=== PATIENT | male | born 1950 | race Caucasian/White ===

== ENCOUNTER 2019-04-28 09:50 | Observation (INO) | payer MEDICARE, OTHER ==
[2019-04-28 10:35] LABS: CHLORIDE,CL 95 mEq/L (98-106); SODIUM,NA 132 mEq/L (136-145)
[2019-04-28] MEDS ORDERED: Acetaminophen 325 MG Tab PO PRN (11:47)
[2019-04-28] MEDS ORDERED: Sodium Chloride 0.9% 10 ML Syringe FLUSH PRN (11:47)
[2019-04-28] MEDS ORDERED: Ondansetron 4 MG Tab.DIS PO PRN (11:47)
[2019-04-28] MEDS ORDERED: Insulin Lispro 100 Units/ML 3 ML Vial SUBCUT ONE (12:15)
[2019-04-28] MEDS: Enoxaparin 40 MG/0.4 ML Syringe SUBCUT SCH (12:23)
[2019-04-28] MEDS: Insulin Lispro 100 Units/ML 3 ML Vial SUBCUT SCH ×3 (12:26→20:34)
[2019-04-28] MEDS ORDERED: Sodium Chloride 0.9% 1,000 ML IV SCH (12:30)
[2019-04-28] MEDS: Sodium Chloride 0.9% 1,000 ML IV SCH (16:43)
[2019-04-28] MEDS: atorvaSTATin 20 MG Tab PO SCH (20:05)
[2019-04-28] MEDS: Tamsulosin 0.4 MG Cap.ER PO SCH (20:06)
[2019-04-28] MEDS: Insulin Glargine,Human Rec. Analog 100 Units/ML 3 ML Pen SUBCUT SCH (20:37)
[2019-04-29] MEDS: Sodium Chloride 0.9% 1,000 ML IV SCH (00:43)
[2019-04-29] MEDS: Pantoprazole 40 MG Tab.CR PO SCH (06:58)
[2019-04-29] MEDS: Aspirin 81 MG Tab.EC PO SCH (08:08)
[2019-04-29] MEDS: Insulin Lispro 100 Units/ML 3 ML Vial SUBCUT SCH ×4 (08:10→20:36)
[2019-04-29] MEDS: LISINOPRIL PO SCH (08:16)
[2019-04-29] MEDS: HYDROCHLOROTHIAZIDE PO SCH (08:16)
--- NOTE | 2019-04-29 09:22 | PCM.PN ---
- General Info Date of Service: 04/29/19 Admission Dx/Problem (Free Text): New Onset Diabetes Acute Renal Insufficiency Functional Status: Reports: Pain Controlled, Tolerating Diet, Ambulating - Review of Systems General: Denies: Weakness, Fatigue, Malaise HEENT: Reports: No Symptoms Pulmonary: Denies: Shortness of Breath Cardiovascular: Denies: Chest Pain, Edema, Lightheadedness Gastrointestinal: Denies: Abdominal Pain, Nausea, Vomiting Genitourinary: Reports: No Symptoms Musculoskeletal: Reports: No Symptoms Skin: Reports: No Symptoms Neurological: Reports: No Symptoms - Patient Data Vitals - Most Recent: Last Vital Signs Temp 97.6 F 04/29/19 04:30 Pulse 71 04/29/19 04:30 Resp 16 04/29/19 04:30 BP 124/70 04/29/19 04:30 Pulse Ox 98 04/29/19 04:30 Weight - Most Recent: 230 lb I&O - Last 24 Hours: Intake & Output 04/28/19 04/29/19 04/29/19 22:59 06:59 14:59 Intake Total 1160 1360 Output Total 250 450 Balance 910 910 Lab Results Last 24 Hours: Laboratory Results - last 24 hr 04/28/19 04/28/19 04/28/19 Range/Units 09:55 09:55 09:55 WBC 6.9 (5.0-10.0) 10^3/uL RBC 4.96 (4.50-6.00) 10^6/uL Hgb 14.7 (14.0-18.0) g/dL Hct 43.2 (40.0-54.0) % MCV 87.1 (82.0-94.0) fL MCH 29.6 (27.0-32.0) pg MCHC 34.0 (33.0-38.0) g/dL RDW Coeff of Connor 13.5 (11.0-15.0) % Plt Count 211 (150-400) 10^3/uL Neut % (Auto) 67.2 (35-85) % Lymph % (Auto) 23.1 (10-55) % [place] % (Auto) 7.4 (0-16) % Eos % (Auto) 1.9 (0-5) % Baso % (Auto) 0.4 (0-3) % Neut # (Auto) 4.63 (1.80-7.00) 10^3/uL Lymph # (Auto) 1.59 (1.00-4.80) 10^3/uL [place] # (Auto) 0.51 (0.00-0.80) 10^3/uL Eos # (Auto) 0.13 (0.00-0.45) 10^3/uL Baso # (Auto) 0.03 10^3/uL Sodium 132 L (136-145) mEq/L Potassium 4.3 (3.5-5.0) mEq/L Chloride 95 L (98-106) mEq/L Carbon Dioxide 26 (21-32) mmol/L BUN 37 H D (7-18) mg/dL Creatinine 2.3 H D (0.7-1.3) mg/dL Est Cr Clr Drug Dosing TNP Estimated GFR (MDRD) 29 L (>=60) mL/min Glucose 532 H* D (75-99) mg/dL POC Glucose (75-105) mg/dl Hemoglobin A1c (4.8-5.6) % Calcium 9.5 (8.4-10.1) mg/dL Total Bilirubin 0.6 (0.0-1.0) mg/dL AST 30 (15-37) U/L ALT 39 (12-78) U/L Alkaline Phosphatase 133 H (46-116) U/L Total Protein 7.8 (6.4-8.2) g/dL Albumin 4.2 (3.4-5.0) g/dL Triglycerides 607 H (30-150) mg/dL Cholesterol 232 H (0-199) mg/dL HDL Cholesterol 27 L (60-90) mg/dL PSA Screen 7.49 H (0.13-4.0) ng/mL TSH, Ultra Sensitive 2.93 (0.36-5.60) uIU/mL Urine Color Yellow (YELLOW) Urine Appearance Clear (CLEAR) Urine pH 5.0 (4.5-8.0) Ur Specific [place] 1.020 (1.003-1.020) Urine Protein Negative (NEGATIVE) mg/dL Urine Glucose (UA) 500 H (NEGATIVE) mg/dL Urine Ketones 15 H (NEGATIVE) mg/dL Urine Occult Blood Trace-lysed H (NEGATIVE) Urine Nitrite Negative (NEGATIVE) Urine Bilirubin Negative (NEGATIVE) Urine Urobilinogen 0.2 (0.2-1.0) EU/dL Ur Leukocyte Esterase Trace H (NEGATIVE) Urine RBC Not seen (0-5) /HPF Urine WBC Not seen (0-5) /HPF 04/28/19 04/28/19 04/28/19 Range/Units 11:00 11:57 17:08 WBC (5.0-10.0) 10^3/uL RBC (4.50-6.00) 10^6/uL Hgb (14.0-18.0) g/dL Hct (40.0-54.0) % MCV (82.0-94.0) fL MCH (27.0-32.0) pg MCHC (33.0-38.0) g/dL RDW Coeff of Connor (11.0-15.0) % Plt Count (150-400) 10^3/uL Neut % (Auto) (35-85) % Lymph % (Auto) (10-55) % [place] % (Auto) (0-16) % Eos % (Auto) (0-5) % Baso % (Auto) (0-3) % Neut # (Auto) (1.80-7.00) 10^3/uL Lymph # (Auto) (1.00-4.80) 10^3/uL [place] # (Auto) (0.00-0.80) 10^3/uL Eos # (Auto) (0.00-0.45) 10^3/uL Baso # (Auto) 10^3/uL Sodium (136-145) mEq/L Potassium (3.5-5.0) mEq/L Chloride (98-106) mEq/L Carbon Dioxide (21-32) mmol/L BUN (7-18) mg/dL Creatinine (0.7-1.3) mg/dL Est Cr Clr Drug Dosing Estimated GFR (MDRD) (>=60) mL/min Glucose (75-99) mg/dL POC Glucose > 500 H* 350 H (75-105) mg/dl Hemoglobin A1c 12.0 H (4.8-5.6) % Calcium (8.4-10.1) mg/dL Total Bilirubin (0.0-1.0) mg/dL AST (15-37) U/L ALT (12-78) U/L Alkaline Phosphatase (46-116) U/L Total Protein (6.4-8.2) g/dL Albumin (3.4-5.0) g/dL Triglycerides (30-150) mg/dL Cholesterol (0-199) mg/dL HDL Cholesterol (60-90) mg/dL PSA Screen (0.13-4.0) ng/mL TSH, Ultra Sensitive (0.36-5.60) uIU/mL Urine Color (YELLOW) Urine Appearance (CLEAR) Urine pH (4.5-8.0) Ur Specific [place] (1.003-1.020) Urine Protein (NEGATIVE) mg/dL Urine Glucose (UA) (NEGATIVE) mg/dL Urine Ketones (NEGATIVE) mg/dL Urine Occult Blood (NEGATIVE) Urine Nitrite (NEGATIVE) Urine Bilirubin (NEGATIVE) Urine Urobilinogen (0.2-1.0) EU/dL Ur Leukocyte Esterase (NEGATIVE) Urine RBC (0-5) /HPF Urine WBC (0-5) /HPF 04/28/19 04/29/19 04/29/19 Range/Units 20:30 07:00 07:00 WBC 6.2 (5.0-10.0) 10^3/uL RBC 4.21 L (4.50-6.00) 10^6/uL Hgb 12.5 L (14.0-18.0) g/dL Hct 37.4 L (40.0-54.0) % MCV 88.8 (82.0-94.0) fL MCH 29.7 (27.0-32.0) pg MCHC 33.4 (33.0-38.0) g/dL RDW Coeff of Connor 13.5 (11.0-15.0) % Plt Count 170 (150-400) 10^3/uL Neut % (Auto) 57.3 (35-85) % Lymph % (Auto) 32.1 (10-55) % [place] % (Auto) 7.7 (0-16) % Eos % (Auto) 2.6 (0-5) % Baso % (Auto) 0.3 (0-3) % Neut # (Auto) 3.57 (1.80-7.00) 10^3/uL Lymph # (Auto) 2.00 (1.00-4.80) 10^3/uL [place] # (Auto) 0.48 (0.00-0.80) 10^3/uL Eos # (Auto) 0.16 (0.00-0.45) 10^3/uL Baso # (Auto) 0.02 10^3/uL Sodium 137 (136-145) mEq/L Potassium 4.0 (3.5-5.0) mEq/L Chloride 104 (98-106) mEq/L Carbon Dioxide 24 (21-32) mmol/L BUN 29 H (7-18) mg/dL Creatinine 1.7 H (0.7-1.3) mg/dL Est Cr Clr Drug Dosing 48.31 Estimated GFR (MDRD) 41 L (>=60) mL/min Glucose 269 H D (75-99) mg/dL POC Glucose 240 H (75-105) mg/dl Hemoglobin A1c (4.8-5.6) % Calcium 8.0 L (8.4-10.1) mg/dL Total Bilirubin (0.0-1.0) mg/dL AST (15-37) U/L ALT (12-78) U/L Alkaline Phosphatase (46-116) U/L Total Protein (6.4-8.2) g/dL Albumin (3.4-5.0) g/dL Triglycerides (30-150) mg/dL Cholesterol (0-199) mg/dL HDL Cholesterol (60-90) mg/dL PSA Screen (0.13-4.0) ng/mL TSH, Ultra Sensitive (0.36-5.60) uIU/mL Urine Color (YELLOW) Urine Appearance (CLEAR) Urine pH (4.5-8.0) Ur Specific [place] (1.003-1.020) Urine Protein (NEGATIVE) mg/dL Urine Glucose (UA) (NEGATIVE) mg/dL Urine Ketones (NEGATIVE) mg/dL Urine Occult Blood (NEGATIVE) Urine Nitrite (NEGATIVE) Urine Bilirubin (NEGATIVE) Urine Urobilinogen (0.2-1.0) EU/dL Ur Leukocyte Esterase (NEGATIVE) Urine RBC (0-5) /HPF Urine WBC (0-5) /HPF /06/14 Range/Units 07:57 WBC (5.0-10.0) 10^3/uL RBC (4.50-6.00) 10^6/uL Hgb (14.0-18.0) g/dL Hct (40.0-54.0) % MCV (82.0-94.0) fL MCH (27.0-32.0) pg MCHC (33.0-38.0) g/dL RDW Coeff of Connor (11.0-15.0) % Plt Count (150-400) 10^3/uL Neut % (Auto) (35-85) % Lymph % (Auto) (10-55) % [place] % (Auto) (0-16) % Eos % (Auto) (0-5) % Baso % (Auto) (0-3) % Neut # (Auto) (1.80-7.00) 10^3/uL Lymph # (Auto) (1.00-4.80) 10^3/uL [place] # (Auto) (0.00-0.80) 10^3/uL Eos # (Auto) (0.00-0.45) 10^3/uL Baso # (Auto) 10^3/uL Sodium (136-145) mEq/L Potassium (3.5-5.0) mEq/L Chloride (98-106) mEq/L Carbon Dioxide (21-32) mmol/L BUN (7-18) mg/dL Creatinine (0.7-1.3) mg/dL Est Cr Clr Drug Dosing Estimated GFR (MDRD) (>=60) mL/min Glucose (75-99) mg/dL POC Glucose 264 H (75-105) mg/dl Hemoglobin A1c (4.8-5.6) % Calcium (8.4-10.1) mg/dL Total Bilirubin (0.0-1.0) mg/dL AST (15-37) U/L ALT (12-78) U/L Alkaline Phosphatase (46-116) U/L Total Protein (6.4-8.2) g/dL Albumin (3.4-5.0) g/dL Triglycerides (30-150) mg/dL Cholesterol (0-199) mg/dL HDL Cholesterol (60-90) mg/dL PSA Screen (0.13-4.0) ng/mL TSH, Ultra Sensitive (0.36-5.60) uIU/mL Urine Color (YELLOW) Urine Appearance (CLEAR) Urine pH (4.5-8.0) Ur Specific [place] (1.003-1.020) Urine Protein (NEGATIVE) mg/dL Urine Glucose (UA) (NEGATIVE) mg/dL Urine Ketones (NEGATIVE) mg/dL Urine Occult Blood (NEGATIVE) Urine Nitrite (NEGATIVE) Urine Bilirubin (NEGATIVE) Urine Urobilinogen (0.2-1.0) EU/dL Ur Leukocyte Esterase (NEGATIVE) Urine RBC (0-5) /HPF Urine WBC (0-5) /HPF Med Orders - Current: Current Medications Acetaminophen (Tylenol) 650 mg PO Q4H PRN PRN Reason: Pain (Mild 1-3)/fever Aspirin (Halfprin) 81 mg PO DAILY [facility] Last Admin: 04/29/19 08:08 Dose: 81 mg Atorvastatin Calcium (Lipitor) 20 mg PO BEDTIME [facility] Last Admin: 04/28/19 20:05 Dose: 20 mg Enoxaparin Sodium (Lovenox) 40 mg SUBCUT DAILY@1200 [facility] Last Admin: 04/28/19 12:23 Dose: 40 mg Sodium Chloride (Normal Saline) 1,000 mls @ 125 mls/hr IV ASDIRECTED [facility] Last Admin: 04/29/19 00:43 Dose: 125 mls/hr Insulin Glargine (Lantus Solostar) 10 units SUBCUT BEDTIME [facility] Last Admin: 04/28/19 20:37 Dose: 10 units Insulin Human Lispro (Humalog) 0 unit SUBCUT WITHMEALSANDBED [facility]; Protocol Metformin HCl (Glucophage Xr) 500 mg PO BIDMEALS [facility] Lisinopril/Hydrochlorothiazide [Lisinopril-Hctz 20- 12.5 Mg] 1 tab PO DAILY [facility] Last Admin: 04/29/19 08:16 Dose: 1 tab Ondansetron HCl (Zofran Odt) 4 mg PO Q4H PRN PRN Reason: nausea, able to take PO Pantoprazole Sodium (Protonix) 40 mg PO DAILY@0700 [facility] Last Admin: 04/29/19 06:58 Dose: 40 mg Sodium Chloride (Saline Flush) 10 ml FLUSH ASDIRECTED PRN PRN Reason: Keep Vein Open Tamsulosin HCl (Flomax) 0.4 mg PO BEDTIME [facility] Last Admin: 04/28/19 20:06 Dose: 0.4 mg Discontinued Medications Sodium Chloride (Normal Saline) 1,000 mls @ 250 mls/hr IV ASDIRECTED [facility] Stop: 04/28/19 16:30 Last Admin: 04/28/19 12:45 Dose: 250 mls/hr Insulin Human Lispro (Humalog) 0 unit SUBCUT WITHMEALSANDBED [facility]; Protocol Last Admin: 04/29/19 08:10 Dose: 9 units Insulin Human Lispro (Humalog) 20 unit SUBCUT NOW ONE Stop: 04/28/19 12:16 Last Admin: 04/28/19 12:21 Dose: 20 units - Exam General: Alert, Oriented HEENT: Mucous Membr. Moist/[place]ck: Supple Lungs: Clear to Auscultation, Normal Respiratory Effort Cardiovascular: Regular Rate, Regular Rhythm GI/Abdominal Exam: Normal Bowel Sounds, Soft, Non-Tender Extremities: Normal Inspection, No Pedal Edema Skin: Warm, Dry Neurological: No New Focal Deficit Sepsis Event Note - Evaluation Sepsis Screening Result: No Definite Risk - Focused Exam Vital Signs: Vital Signs Temp Pulse Resp BP Pulse Ox 04/29/19 04:30 97.6 F 71 16 124/70 98 04/29/19 00:15 98.4 F 71 16 110/58 L 98 Date Exam was Performed: 04/29/19 Time Exam was Performed: 09:17 - Problem List & Annotations (1) Acute prerenal azotemia SNOMED Code(s): 728143566 Code(s): R79.89 - OTHER SPECIFIED ABNORMAL FINDINGS OF BLOOD CHEMISTRY Status: Acute Priority: High Current Visit: Yes (2) Diabetes mellitus with renal complications SNOMED Code(s): 38470312, 865701174 Code(s): E11.29 - TYPE 2 DIABETES MELLITUS W OTH DIABETIC KIDNEY COMPLICATION Status: Acute Priority: High Current Visit: Yes Qualifiers: Diabetes mellitus type: type 2 - Problem List Review Problem List Initiated/Reviewed/Updated: Yes - My Orders Last 24 Hours: My Active Orders 04/28/19 11:47 Patient Status [ADT] Routine Blood Glucose Check, Bedside [RC] 0730,1130,1700,2100 Oxygen Therapy [RC] .PRN Up With Assistance [RC] .PRN Vital Signs [RC] 0000,0400,0800,1200,1600,2000 Consult to Diabetic Nurse Specialist [CONS] Urgent Consult to Cleaner Greaser [CONS] Routine Acetaminophen [Tylenol] 650 mg PO Q4H PRN Ondansetron [Zofran ODT] 4 mg PO Q4H PRN Sodium Chloride 0.9% [Saline Flush] 10 ml FLUSH ASDIRECTED PRN Peripheral IV Insertion Adult [OM.PC] Routine 04/28/19 11:49 Cardiac Monitoring [RC] 0800,1999 Intake and Output [RC] 0600,1800 Peripheral IV Care [RC] 0800,199904/28/19 12:30 Enoxaparin [Lovenox] 40 mg SUBCUT DAILY@1200 04/28/19 16:50 Sodium Chloride 0.9% [Normal Saline] 1,000 ml IV ASDIRECTED 04/28/19 20:00 Insulin Glarg,Human.Rec.Analog [LantUS Solostar] 10 units SUBCUT BEDTIME Tamsulosin [Flomax] 0.4 mg PO BEDTIME atorvaSTATin [Lipitor] 20 mg PO BEDTIME 04/28/19 Lunch Consistent Carbohydrate Diet [DIET] 04/29/19 07:00 Pantoprazole [ProTONIX] 40 mg PO DAILY@0700 04/29/19 08:00 Aspirin [Halfprin] 81 mg PO DAILY Lisinopril/Hydrochlorothiazide [Lisinopril-Hctz 20-12.5 mg Tab] 1 tab PO DAILY 04/29/19 09:00 metFORMIN [Glucophage XR] 500 mg PO BIDMEALS 04/29/19 12:00 Insulin Lispro [HumaLOG] See Protocol SUBCUT WITHMEALSANDBED - Assessment Assessment:: Diabetes Mellitus with acute kidney complications Prerenal azotemia - Plan Plan:: Patient is feeling good today. Blood pressure in good control. Is voiding well , creatinine improved to 1.7, chronically 1.3 to 1.5. Blood sugar greater than 500 on admit, now running in the 260s with sliding scale insulin and lantus 10 units. Denies chest pain, shortness of breath or any nausea. Is learning how to check blood sugars with nursing staff and doing well. Dietitian to meet with patient today. Will start Metformin XR 500 mg BID today. Continue sliding scale insulin. Stop IV fluids. Likely discharge home tomorrow with medication plan. Was started on Lipitor, has had issues with Simvastatin in the past, will follow tolerance.
[2019-04-29] MEDS: metFORMIN 500 MG Tab.ER PO SCH ×2 (11:53→17:12)
[2019-04-29] MEDS: Enoxaparin 40 MG/0.4 ML Syringe SUBCUT SCH (12:50)
[2019-04-29] MEDS: Tamsulosin 0.4 MG Cap.ER PO SCH (19:54)
[2019-04-29] MEDS: atorvaSTATin 20 MG Tab PO SCH (19:54)
[2019-04-29] MEDS ORDERED: Insulin Lispro 100 Units/ML 3 ML Vial SUBCUT ONE (20:28)
[2019-04-29] MEDS: Insulin Glargine,Human Rec. Analog 100 Units/ML 3 ML Pen SUBCUT SCH (20:35)
[2019-04-30] MEDS: Pantoprazole 40 MG Tab.CR PO SCH (06:37)
[2019-04-30] MEDS: Aspirin 81 MG Tab.EC PO SCH (07:20)
[2019-04-30] MEDS: LISINOPRIL PO SCH (07:20)
[2019-04-30] MEDS: HYDROCHLOROTHIAZIDE PO SCH (07:20)
[2019-04-30] MEDS: metFORMIN 500 MG Tab.ER PO SCH (07:20)
[2019-04-30] MEDS: Insulin Lispro 100 Units/ML 3 ML Vial SUBCUT SCH (07:29)
--- NOTE | 2019-04-30 09:22 | PCM.DCSUM1 ---
Discharge Summary - Hospital Course Free Text/Narrative:: Quincy is a 68 year old male who presented to clinic for medication refill for his hypertension. Had been feeling good except noted to be tired at times. Admitted he had not been taking his cholesterol meds due to nausea. Exam relatively normal. Blood pressure was high in clinic at 160/100. Was sent over for routine labs and results noted blood sugar to be 532. A1C of 12. Last known glucose done was 1 year ago at 133. Creatinine also high at 2.3. Lipids high with triglycerides 600. Brought back to clinic for admit for new onset diabetes. Started on sliding scale insulin with Lantus 10 units. Bolus IV fluids given. Diagnosis: Stroke: No Modified [place] Scale: No Symptoms at All Modified [place] Scale Score: 0 - Discharge Data Discharge Date: 04/30/19 Discharge Disposition: Home, Self-Care 01 Condition: Good - Referral to Home Health Primary Care Physician: ELPIDIO Linn - Discharge Diagnosis/Problem(s) (1) Acute prerenal azotemia SNOMED Code(s): 868419964 ICD Code: R79.89 - OTHER SPECIFIED ABNORMAL FINDINGS OF BLOOD CHEMISTRY Status: Acute Priority: High (2) Diabetes mellitus with renal complications SNOMED Code(s): 07639914, 191031461 ICD Code: E11.29 - TYPE 2 DIABETES MELLITUS W OTH DIABETIC KIDNEY COMPLICATION Status: Acute Priority: High Qualifiers: Diabetes mellitus type: type 2 - Patient Summary/Data Complications: none Consults: Consultations 04/28/19 11:47 Consult to Diabetic Nurse Specialist [CONS] Urgent Consult to Media Technician [CONS] Routine Hospital Course: Patient doing well. Admits is feeling good. Demonstrations of obtaining blood sugar shown to patient and is doing well checking his glucose. Blood sugars have been running in the 260 range. Giving self insulin injections. Tolerating Lipitor thus far. Creatinine had improved to 1.7 after 2 liters of fluid. Dietitian did meet with patient, will follow up in 2 weeks with food log , blood sugar log. Metformin started yesterday. Was tachycardic with elevated blood pressure on admit, much improved and now normal rate and rhythm. Normotensive. Will discharge home on Lantus 10 units at bedtime, Metformin BID. Recheck in 2 weeks with blood sugar log at that time. - Patient Instructions Diet: Diabetic Diet Activity: As Tolerated - Discharge Plan *PRESCRIPTION DRUG MONITORING PROGRAM REVIEWED*: No *COPY OF PRESCRIPTION DRUG MONITORING REPORT IN PATIENT NELY: No Prescriptions/Med Rec: atorvaSTATin [Lipitor] 20 mg PO BEDTIME #30 tablet Insulin Glarg,Human.Rec.Analog [Lantus Solostar] 10 units SUBCUT BEDTIME #10 pen metFORMIN [Glucophage XR] 500 mg PO BIDMEALS #60 tab.er Home Medications: Home Meds Tamsulosin HCl 0.4 mg PO BEDTIME 03/12/17 [History] Aspirin [Halfprin] 81 mg PO DAILY 04/28/19 [History] Lisinopril/Hydrochlorothiazide [Lisinopril-Hctz 20-12.5 mg Tab] 1 tab PO DAILY 04/28/19 [History] Pantoprazole Sodium [Protonix] 40 mg PO DAILY 04/28/19 [History] Insulin Glarg,Human.Rec.Analog [Lantus Solostar] 10 units SUBCUT BEDTIME #10 pen 04/30/19 [Rx] atorvaSTATin [Lipitor] 20 mg PO BEDTIME #30 tablet 04/30/19 [Rx] metFORMIN [Glucophage XR] 500 mg PO BIDMEALS #60 tab.er 04/30/19 [Rx] Patient Handouts: Type 2 Diabetes Mellitus, Diagnosis, Adult, Insulin Treatment for Diabetes Mellitus, Carbohydrate Counting for Diabetes Mellitus, Pediatric, Hyperglycemia, [id number], Hypoglycemia, [id number] Referrals: Marie Diaz PA [Primary Care Provider] - (Follow up with Renée in 2 weeks) - Discharge Summary/Plan Comment DC Time >30 min.: No - General Info Date of Service: 04/30/19 Admission Dx/Problem (Free Text: New Onset Diabetes Acute Renal Insufficiency Functional Status: Reports: Pain Controlled, Tolerating Diet, Ambulating - Review of Systems General: Denies: Weakness, Fatigue, Malaise HEENT: Reports: No Symptoms Pulmonary: Reports: No Symptoms Cardiovascular: Reports: No Symptoms Gastrointestinal: Reports: No Symptoms Genitourinary: Reports: No Symptoms Musculoskeletal: Reports: No Symptoms Skin: Reports: No Symptoms Neurological: Reports: No Symptoms - Patient Data Vitals - Most Recent: Last Vital Signs Temp 97.3 F 04/30/19 07:14 Pulse 70 04/30/19 07:14 Resp 18 04/30/19 07:14 BP 134/73 04/30/19 07:14 Pulse Ox 96 04/30/19 07:14 Weight - Most Recent: 230 lb I&O - Last 24 hours: Intake & Output 04/29/19 04/30/19 04/30/19 22:59 06:59 14:59 Intake Total 1020 300 Output Total 500 Balance 520 300 Lab Results - Last 24 hrs: Laboratory Results - last 24 hr 04/29/19 04/29/19 04/29/19 Range/Units 11:32 17:11 20:22 POC Glucose 281 H 282 H 413 H* (75-105) mg/dl 04/30/19 Range/Units 07:25 POC Glucose 247 H (75-105) mg/dl Med Orders - Current: Current Medications Acetaminophen (Tylenol) 650 mg PO Q4H PRN PRN Reason: Pain (Mild 1-3)/fever Aspirin (Halfprin) 81 mg PO DAILY [facility] Last Admin: 04/30/19 07:20 Dose: 81 mg Atorvastatin Calcium (Lipitor) 20 mg PO BEDTIME [facility] Last Admin: 04/29/19 19:54 Dose: 20 mg Enoxaparin Sodium (Lovenox) 40 mg SUBCUT DAILY@1200 [facility] Last Admin: 04/29/19 12:50 Dose: 40 mg Insulin Glargine (Lantus Solostar) 10 units SUBCUT BEDTIME [facility] Last Admin: 04/29/19 20:35 Dose: 10 units Insulin Human Lispro (Humalog) 0 unit SUBCUT WITHMEALSANDBED [facility]; Protocol Last Admin: 04/30/19 07:29 Dose: 2 unit Metformin HCl (Glucophage Xr) 500 mg PO BIDMEALS [facility] Last Admin: 04/30/19 07:20 Dose: 500 mg Lisinopril/Hydrochlorothiazide [Lisinopril-Hctz 20- 12.5 Mg] 1 tab PO DAILY [facility] Last Admin: 04/30/19 07:20 Dose: 1 tab Ondansetron HCl (Zofran Odt) 4 mg PO Q4H PRN PRN Reason: nausea, able to take PO Pantoprazole Sodium (Protonix) 40 mg PO DAILY@0700 [facility] Last Admin: 04/30/19 06:37 Dose: 40 mg Sodium Chloride (Saline Flush) 10 ml FLUSH ASDIRECTED PRN PRN Reason: Keep Vein Open Tamsulosin HCl (Flomax) 0.4 mg PO BEDTIME [facility] Last Admin: 04/29/19 19:54 Dose: 0.4 mg Discontinued Medications Sodium Chloride (Normal Saline) 1,000 mls @ 250 mls/hr IV ASDIRECTED [facility] Stop: 04/28/19 16:30 Last Admin: 04/28/19 12:45 Dose: 250 mls/hr Sodium Chloride (Normal Saline) 1,000 mls @ 125 mls/hr IV ASDIRECTED [facility] Last Admin: 04/29/19 00:43 Dose: 125 mls/hr Insulin Human Lispro (Humalog) 0 unit SUBCUT WITHMEALSANDBED [facility]; Protocol Last Admin: 04/29/19 08:10 Dose: 9 units Insulin Human Lispro (Humalog) 20 unit SUBCUT NOW ONE Stop: 04/28/19 12:16 Last Admin: 04/28/19 12:21 Dose: 20 units Insulin Human Lispro (Humalog) 5 unit SUBCUT STAT ONE Stop: 04/29/19 20:29 Last Admin: 04/29/19 20:36 Dose: 5 units - Exam General: Reports: Alert, Oriented HEENT: Reports: Mucous Membr. Moist/[place] Neck: Reports: Supple Lungs: Reports: Clear to Auscultation, Normal Respiratory Effort Cardiovascular: Reports: Regular Rate, Regular Rhythm GI/Abdominal Exam: Normal Bowel Sounds, Soft, Non-Tender Extremities: Normal Inspection, No Pedal Edema Skin: Reports: Warm, Dry Neurological: Reports: No New Focal Deficit
== END 2019-04-30 09:30 | disposition home or self-care (01) ==
LOC: CC.FCMC 09:50 → CC.MS 09:50 → UNDOADMOB 11:30 → CC.MS 11:30
PROVIDERS: ADMIT Physician Assistant Medical; ATTEND Family Medicine
DX: E11.29 Type 2 diabetes mellitus with other diabetic kidney complication (principal); N28.9 Disorder of kidney and ureter, unspecified; R00.0 Tachycardia, unspecified; R11.0 Nausea; E78.5 Hyperlipidemia, unspecified; I10 Essential (primary) hypertension; R97.20 Elevated prostate specific antigen [PSA]; R79.89 Other specified abnormal findings of blood chemistry; Z76.0 Encounter for issue of repeat prescription; Z12.5 Encounter for screening for malignant neoplasm of prostate; Z79.899 Other long term (current) drug therapy; Z79.4 Long term (current) use of insulin; Z79.82 Long term (current) use of aspirin; Z88.0 Allergy status to penicillin
CPT/HCPCS: 36415; 80048; 80053; 80061; 81001; 82962; 83036; 84443; 85025; 93005; 96360; 96361; 96372; 99217; 99220; 99225; A9270-GY; G0103; G0378; J1650; J1815; J1815-GY; J7030

== ENCOUNTER → 2022-09-28 | Day surgery (SDC) | payer MEDICARE, OTHER ==
[~2022-09-28] MED LIST: Propofol 200 MG/20 ML SDV ONE
[2022-09-28] MEDS: Lactated Ringers 1,000 ML IV SCH (07:40)
== END ==
LOC: CC.SDS 06:52
PROVIDERS: ATTEND Family Medicine
DX: D12.5 Benign neoplasm of sigmoid colon (principal); K62.1 Rectal polyp; N40.0 Benign prostatic hyperplasia without lower urinary tract symptoms; E78.5 Hyperlipidemia, unspecified; I10 Essential (primary) hypertension; E11.9 Type 2 diabetes mellitus without complications; F17.200 Nicotine dependence, unspecified, uncomplicated; Z79.899 Other long term (current) drug therapy; Z88.0 Allergy status to penicillin; Z79.82 Long term (current) use of aspirin; Z98.890 Other specified postprocedural states
CPT/HCPCS: 00811; 88305; J2704; J7120